=== PATIENT | female | born 1980 | race Caucasian/White ===

== ENCOUNTER 2019-11-11 09:47 | Outpatient (CLI) | payer BC ==
--- NOTE | 2019-11-11 10:17 | RAD ---
EXAM: 3 views of the lumbosacral spine HISTORY: Low back pain and lumbar disc disease COMPARISON: 06/04/2009 FINDINGS: 3 views of the lumbosacral spine shows normal height and alignment of the vertebral bodies and intervertebral discs without fracture or subluxation. Mild to moderate posterior facet arthrosis is seen in the lower lumbosacral spine. No other significant degenerative changes are seen. The sacroiliac joints are unremarkable. 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
--- NOTE | 2019-11-11 10:18 | RAD ---
EXAM: 3 views of the sacroiliac joints HISTORY: Sacroiliitis and right-sided back pain COMPARISON: None FINDINGS: 3 views of the sacrum shows a symmetric appearance of the sacroiliac joints. No fusion of t he joints is seen. No surrounding erosions are present. No significant sclerosis is seen. IMPRESSION: No significant abnormality
== END 2019-11-11 09:48 | disposition home or self-care (01) ==
LOC: BICRAD 09:47
PROVIDERS: ATTEND Family Medicine
DX: M51.9 Unspecified thoracic, thoracolumbar and lumbosacral intervertebral disc disorder (principal); M46.1 Sacroiliitis, not elsewhere classified; L40.50 Arthropathic psoriasis, unspecified; M47.816 Spondylosis without myelopathy or radiculopathy, lumbar region
CPT/HCPCS: 72100; 72202

== ENCOUNTER 2020-11-23 07:43 | Outpatient (CLI) | payer BC | END 2020-11-23 07:44 | disposition home or self-care (01) | LOC: BICMAMMO 07:43 | PROVIDERS: ATTEND Family Medicine | DX: Z12.31 Encounter for screening mammogram for malignant neoplasm of breast (principal) | CPT/HCPCS: 77063; 77067 ==

== ENCOUNTER 2023-02-20 08:03 | Outpatient (CLI) | payer BC | END 2023-02-20 08:04 | disposition home or self-care (01) | LOC: BICMAMMO 08:03 | PROVIDERS: ATTEND Family Medicine | DX: Z12.31 Encounter for screening mammogram for malignant neoplasm of breast (principal); Z80.3 Family history of malignant neoplasm of breast; Z85.41 Personal history of malignant neoplasm of cervix uteri | CPT/HCPCS: 77063; 77067 ==